=== PATIENT | male | born 1995 | race Caucasian/White ===

== ENCOUNTER 2017-12-15 18:14 | Emergency (ER) | payer SELFPAY ==
[~2017-12-15] VITALS: Ht 180.3 cm; Wt 119.0 kg
[~2017-12-15 18:14] MED LIST: BACT2OIN TOP; CEPH500C3 PO; NAPR550 PO; SERT50 PO; SULF-154 PO
[2017-12-15 18:28] VITALS: BP 139/89; PULSE 105; RESP 18; TEMP 98.6; O2SAT 99
[2017-12-15] MEDS ORDERED: BACT800T5 PO (18:36)
[2017-12-15] MEDS ORDERED: DICL75TA PO (18:36)
[2017-12-15] MEDS ORDERED: HYDR-3516 PO (18:36)
[2017-12-15] MEDS ORDERED: LIDOCAINE 1%/EPINEPHrine 1:100,000 SOLN 30 ML VIAL ONE (18:39)
[2017-12-15] MEDS ORDERED: LIDOCAINE 1%/EPINEPHrine 1:100,000 SOLN 20 ML VIAL INFIL ONE (18:45)
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
== END 2017-12-15 19:20 | disposition home or self-care (01) ==
LOC: PHEFT 18:14
DX: L05.01 Pilonidal cyst with abscess (principal); F17.200 Nicotine dependence, unspecified, uncomplicated
CPT/HCPCS: 10080; 87070; 87205